=== PATIENT | female | born 1940 | race Caucasian/White ===

== ENCOUNTER 2025-10-26 02:26 | Emergency (ER) | payer OTHER, MEDICARE, SELFPAY ==
[2025-10-26 02:28] VITALS: BMI 33.0
[2025-10-26 02:36] VITALS: BP 174/91; PULSE 60; RESP 18; TEMP 36.6; O2SAT 97
--- NOTE | 2025-10-26 03:00 | PD.EDEXREM ---
ED Extremity Problem RME/HPI General Chief complaint: Extremity Problem,Nontraumatic Stated complaint: RIGHT KNEE PAIN AND SWELLING AFTER HEARING A POP Time Seen by Provider: 10/26/25 02:50 Arrival date/time: 10/26/25 02:26 RME / HPI RME / HPI Narrative: See MDM for Dr. Elizalde's HPI documentation. Related Data Allergies Allergy/AdvReac Type Severity Reaction Status Date / Time No Known Allergies Allergy Verified 10/26/25 02:28 Review of Systems Review of Systems Systems Reviewed: All systems reviewed, normal except as documented ED Exam Narrative Physical exam: See MDM for Dr. Elizalde's physical exam documentation. Course Quality Measures none Orders Category Date Time Status Saline [Insert IV] NOW Care 10/26/25 03:31 Active Straight [In and Out Catheter] X1 Care 10/26/25 03:[address] knee RT wo con Stat Exams 10/26/25 03:32 Ordered US venous doppler LE RT Stat Exams 10/26/25 03:33 Taken XR knee RT 3V Stat Exams 10/26/25 03:09 Taken BNP [B-Type Natriuretic Peptide] Stat Lab 10/26/25 03:52 Completed Bilirubin,Direct Stat Lab 10/26/25 03:52 Completed CBC Stat Lab 10/26/25 03:52 Completed CK [Creatine Kinase] Stat Lab 10/26/25 03:52 Completed CMP [Comprehensive Metabolic Panel] Stat Lab 10/26/25 03:52 Completed CRP [C-Reactive Protein] Stat Lab 10/26/25 03:52 Completed D-Dimer Stat Lab 10/26/25 03:52 Completed ESR [Sed Rate (ESR)] Stat Lab 10/26/25 03:52 Completed Hemoglobin A1C [Glycohemoglobin w (eAG)] Stat Lab 10/26/25 03:52 Completed Magnesium Stat Lab 10/26/25 03:52 Completed Procalcitonin Stat Lab 10/26/25 03:52 Completed TSH [Thyroid Stimulating Hormone] Stat Lab 10/26/25 03:52 Completed UA, C/S IF [Urinalysis, C/S if Indicated] Stat Lab 10/26/25 04:49 Received Uric Acid Stat Lab 10/26/25 03:52 Completed Morphine* Inj Med 10/26/25 03:32 Discontinued 2 mg IV X1 ONE Ondansetron Inj [Zofran Inj] Med 10/26/25 03:32 Discontinued 4 mg IVP X1 ONE Ringers Lactated 1000 ml [Lactated Ringers] 1,000 ml Med 10/26/25 03:32 Active IV 125 mls/hr Vital Signs Vital signs: Vital Signs Temperature 98 F 10/26/25 02:36 Pulse Rate 60 10/26/25 02:36 Respiratory Rate 18 10/26/25 02:36 Blood Pressure 174/91 H 10/26/25 02:36 Pulse Oximetry (%) 97 10/26/25 02:36 Oxygen Delivery Method Room Air 10/26/25 02:36 Extremity Problem MDM Narrative MDM Narrative:: This section includes all my notes and documentations, including HPI, PE, and ED course. Benson Elizalde MD HPI: 85-year-old female here with severe right knee pain and swelling. About 7 hours ago, she got up from her chair when the pain and swelling started. Normally, she ambulates well without assistance. Currently, she can't bear any weight. No other complaints. ROS: All negative except as documented in HPI. Physical Exam: General: Alert and oriented. In obvious pain. Eyes: Conjunctivae and lids clear. ENT: No nasal congestion. Neck: Supple. Heart: RRR. Lungs: No respiratory distress. Good air movement. No rhonchi, wheezing, rales. Skin: Warm and dry. Neuro: Alert and oriented X 3. Right knee: Severe pain and edema. Limited range of motion due to pain. I ordered IVF, Zofran 4 mg IV, morphine 2 mg IV, and diagnostic tests. At 6 AM on 10/26/2025, the care of the patient was transferred to Dr. Mario. Benson Elizalde MD Patient data External records reviewed:: [facility] previous records (Per chart review, patient has no previous ED visits or admissions to this facility.) Clinical information provided by:: patient Social determinants that could affect healthcare access:: none Patient has the following chronic illnesses:: none How is presenting disease/condition affected by chronic disease/condition?: no chronic disease Evaluation data The following diagnostics were reviewed and interpreted by me:: lab results and radiology exam(s) Lab and/or radiology exams considered but not ordered:: none Interpretation Summary: Complete diagnostic tests are pending. Medications / Prescriptions Medications or Prescriptions considered but not ordered:: none Medication administrations:: Medication Administration History Lactated Ringer's (Lactated Ringers) 1,000 mls @ 125 mls/hr IV .Q8H ONE Stop: 10/26/25 11:31 Last Admin: 10/26/25 04:38 Dose: 125 mls/hr Documented By: THOMAS Discontinued Medications Morphine Sulfate (Morphine Sulf Inj 4 Mg/Ml Vial) 2 mg IV X1 ONE Stop: 10/26/25 03:33 Last Admin: 10/26/25 04:38 Dose: 2 mg Documented By: THOMAS Ondansetron HCl (Ondansetron Inj 2 Mg/Ml Inj 2 Ml) 4 mg IVP X1 ONE; Protocol Stop: 10/26/25 03:33 Last Admin: 10/26/25 04:39 Dose: 4 mg Documented By: THOMAS I ordered IVF, Zofran 4 mg IV, morphine 2 mg IV, and diagnostic tests. Consultations Consultation(s) initiated? (list below): No Diagnosis Extremity Problem Differential Diagnosis: gout, cellulitis, superficial thrombophlebitis and deep vein thrombosis of lower extremity Most likely diagnosis given after review of the tests above:: Complete diagnostic tests are pending. Admission Indicated Admission indicated?: not indicated Explain why admission is indicated or not indicated:: Complete diagnostic tests are pending. Admission Request Was there a request for admission?: No Disposition Plan Disposition Plan: other (specify) (Signed out to Dr. Mario at 6 AM.) Discharge Plan Problem List Clinical Impression: Right knee pain Patient/Caregiver Discharge Instructions Print Language: Citizen Of [place]
--- NOTE | 2025-10-26 03:09 | XR_ITS ---
Examination: Knee, right, 3 views Technique: Knee AP, lateral, oblique 3 views Date and time of exam: 10/26/2025 at 3:11 a.m. CLINICAL HISTORY: Pain and swelling, patient heard the knee pop last night FINDINGS: There are degenerative osteophytes surrounding the medial and lateral joint compartments. There is faint but definite calcification of the medial and lateral menisci consistent with chondrocalcinosis. The medial and lateral joint compartments are well preserved, however there is mild but definite abnormal bony sclerosis involving the subarticular portion of the medial and lateral femoral condyles, and there are very tiny lucencies noted in the subchondral portion of the medial and lateral femoral condyle which are suggestive for small bony erosions. On the AP view there is significant swelling noted medially, on the lateral view the suprapatellar bursa is markedly distended with fluid indicating a very large knee joint effusion on the lateral view, much more extensive calcification but can be seen within the joint again felt to be consistent with chondrocalcinosis. IMPRESSION: 1. Although the medial and lateral joint compartments are essentially normal in width, there our mild areas of sclerosis with tiny lytic areas seen in the medial and lateral femoral condyle suggesting significant degenerative changes and small bony erosions involving the subchondral bone. 2. Extensive chondrocalcinosis in the joint 3. An extremely large knee joint effusion is identified. Given the clinical history, this is worrisome for an ACL tear. MRI is recommended
--- NOTE | 2025-10-26 03:32 | XR_ITS ---
Examination: CT right knee, without contrast. 2-D sagittal reconstructions. 2-D coronal reconstructions. 3-D reconstructions. Date and time of exam: October 26, 2025, 0509 hours INDICATIONS: Onset severe right knee pain and swelling decreased range of motion and joint popping today CTDI: vol (mGy): 9.73 DLP: (mGycm): 300 Technique: Multiple 1.25 mm axial sections of the right knee without intravenous contrast have been obtained. 2-D sagittal and coronal reconstructions have been obtained. 3-D reconstructions have been obtained. Low dose protocols were performed. One or more of the following dose reduction techniques were used; automated exposure control, adjustment of the mA and/or KV according to patient size, use of iterative reconstruction technique. Findings: Distal femur femoral condyles intact Large knee effusion with internal debris Moderate patellofemoral joint osteoarthritis no patellar dislocation Patella intact Visualized tibia fibula intact Medial popliteal cyst, 5 cm, seen with internal derangement of the knee Moderate narrowing medial joint space IMPRESSION: No acute fracture Large knee effusion with internal debris Osteoarthritis as above Large popliteal cyst, seen with internal derangement of the knee such as meniscus tear
--- NOTE | 2025-10-26 03:33 | XR_ITS ---
Examination: Duplex scan of the lower extremity, unilateral right Date and time of exam: 10/26/2025 at 404 a INDICATION: 1. Severe right lower extremity pain Technique: Duplex scan of the extremity veins using B-mode/grayscale imaging and Doppler spectral analysis and color flow Attention is directed to internal echogenicity, compression and augmentation involving these veins, color flow assessment, spectral analysis Findings: Major deep venous structures in the extremity demonstrate normal course and caliber. There is no evidence of deep vein thrombosis. Normal color flow and spectral analysis Impression: Negative for DVT..
[2025-10-26 04:12] LABS: Basophils # (Auto) 0.1 Thou/mm3 (0.0-0.2); Basophils % (Auto) 1 % (0-2.5); Eosinophils # (Auto) 0.3 Thou/mm3 (0.0-0.5); Eosinophils % (Auto) 3 % (0-10); Hematocrit 37.1 % (36.0-46.0); Hemoglobin 12.1 g/dL (12.0-16.0); Immature Granulocytes Auto 0.03 Thou/mm3 (0.00-0.00); Lymphocytes # (Auto) 2.1 Thou/mm3 (1.0-4.8); Lymphocytes % (Auto) 25 % (10-50); Mean Corpuscular HGB Conc 32.6 g/dl (31.0-37.0); Mean Corpuscular Hemoglobin 29.4 pg (25.0-35.0); Mean Corpuscular Volume 90 fL (80-100); Monocytes # (Auto) 0.8 Thou/mm3 (0.0-0.8); Monocytes % (Auto) 9 % (0-12); Neutrophils # (Auto) 5.2 Thou/mm3 (1.8-7.7); Neutrophils % (Auto) 61 % (37-80); Nucleated Red Blood Cell # 0.00 Thou/mm3 (0.00-0.00); Nucleated Red Blood Cell % 0 /100 WBC (0); Platelet Count 192 Thou/mm3 (140-440); RDW Standard Deviation 52.9 fL (36.4-46.3); Red Blood Count 4.12 Miln/mm3 (4.00-5.20); White Blood Count 8.5 Thou/mm3 (3.6-11.0)
[2025-10-26 04:19] LABS: Sed Rate (ESR) 7 mm/hr (0-30)
[2025-10-26 04:28] LABS: B-Type Natriuretic Peptide 187 pg/mL (0-100); D-Dimer 377 ng/mL (<600); Glucose Estimated Average 105 mg/dL (80-131); Hemoglobin A1C 5.3 % Hgb (4.8-6.0)
[2025-10-26 04:29] VITALS: BP 184/86; PULSE 60; RESP 18; TEMP 36.9; O2SAT 100
[2025-10-26 04:35] LABS: Albumin, Serum 4.3 gm/dL (3.4-4.8); Albumin/Globulin Ratio 1.7 (1.2-2.2); Alkaline Phosphatase 48 U/L (46-116); Anion Gap 9 (7-16); Aspartate Amino Transferase 26 U/L (0-34); BUN/Creatinine Ratio 10 Ratio (12-20); Bilirubin,Total 0.3 mg/dL (0.3-1.2); Blood Urea Nitrogen 11 mg/dL (9-23); Calcium 9.0 mg/dL (8.3-10.6); Calcium (Corrected) 9.0 mg/dL (8.5-10.1); Carbon Dioxide 26.7 mMol/L (20.0-31.0); Chloride 102 mMol/L (98-107); Creatine Kinase 86 U/L (34-171); Creatinine (Component) 1.1 mg/dL (0.6-1.3); Estimated Creatinine Clearance 37.0 mL/min (>60); Globulin 2.5 gm/dL (2.3-3.5); Glucose 103 mg/dL (74-106); Magnesium 1.9 mg/dL (1.6-2.6); Osmolality,Calculated 275 (275-295); Potassium 3.7 mMol/L (3.4-5.1); Sodium 138 mMol/L (136-145); Total Protein 6.8 gm/dL (5.7-8.2); Uric Acid 6.8 mg/dL (3.1-7.8); eGFR 50 See Note
[2025-10-26] MEDS: RINGERS LACTATED 1000 ML 1,000 ML 125 ML IV (04:38)
[2025-10-26] MEDS: MORPHINE SULF INJ 4 MG/ML VIAL 2 MG IV (04:38)
[2025-10-26] MEDS: ONDANSETRON INJ 2 MG/ML INJ 2 ML 4 MG IVP (04:39)
[2025-10-26 04:51] LABS: Alanine Aminotransferase 9 U/L (10-49); Bilirubin,Direct < 0.1 mg/dL (0.0-0.3); C-Reactive Protein < 0.5 mg/dL (0.0-0.9); Procalcitonin < 0.04 ng/ml (0.0-0.49); Thyroid Stimulating Hormone 1.96 uIU/mL (0.55-4.78)
--- NOTE | 2025-10-26 05:09 | PRELIM_ITS ---
Right lower extremity venous Doppler ultrasound with wave Doppler spectral analysis. October 26, 2025 0403 hours Clinical history: Severe pain. Technique: Duplex scan of the right lower extremity deep venous systems was performed utilizing 2D grayscale imaging, Doppler spectral analysis and color flow Doppler and with compression. Comparison: None available at the time of this report. Findings: Blakely scale, color flow and spectral Doppler evaluation of the right lower extremity deep veins were performed. The common femoral, superficial femoral and popliteal veins are patent and compressible. Normal respiratory variation is noted. There is no evidence of occlusive or nonocclusive thrombus. The great saphenous vein is patent and compressible at the level of the saphenofemoral junction. Complex collection in the popliteal fossa measuring 7.5 x 5.4 x 4.2 cm. Impression: No sonographic evidence of deep venous thrombosis in the right lower extremity. Complex collection in the popliteal fossa, further evaluation for characterization is recommended. Report Electronically Signed By: Dany Wyman 10/26/2025 5:08:55 AM [EST]
[2025-10-26 05:16] LABS: Collection Type, Urine Clean Catch
[2025-10-26 05:27] LABS: Bilirubin,Urine Negative (Negative); Blood,Urine Negative (Negative); Clarity,Urine Clear (Clear/Hazy); Color,Urine Lt-Yellow (Lt Yel-Yel); Culture Indicated,Urine Not Indicated; Glucose, Urine Negative (Negative); Ketones,Urine Negative (Negative); Leukocyte Esterase,Urine Negative (Negative); Nitrite,Urine Negative (Negative); PH,Urine 5.5 (5.0-7.0); Protein,Urine Negative (Neg - Trace); RBC,Urine < 1 /hpf (0-3); Specific Gravity,Urine 1.020 (1.001-1.035); Squamous Epithelial Cell,Urine 1 /hpf (0-5); Urobilinogen,Urine Negative mg/dL (0.0-1.0); WBC,Urine < 1 /hpf (0-5)
--- NOTE | 2025-10-26 05:48 | PRELIM_ITS ---
CT right knee without intravenous contrast (axial sections with sagittal and coronal reformats). October 26, 2025 at 0509 hours Clinical History: Severe pain and edema. Comparison: No prior study is available for comparison. Findings: Large knee joint effusion with debris. Vega's cyst measuring 4.7 x 4.0 x 7 cm. Tricompartmental degenerative changes. No acute fracture is identified. Impression: 1. Nonspecific large knee joint effusion with debris. 2. Large Vega's cyst. 3. Tricompartmental osteoarthritis. Report Electronically Signed By: Santosh Arndt 10/26/2025 5:47:25 AM [EST]
[2025-10-26 06:11] VITALS: BP 170/83; PULSE 60; RESP 18; TEMP 36.4; O2SAT 99
[2025-10-26 08:50] VITALS: BP 148/90; PULSE 63; RESP 17; TEMP 36.4; O2SAT 98
--- NOTE | 2025-10-26 08:50 | PC.NURSE ---
Pt. here from home to room 9, pt. states she went to get up from her chair at home, and heard a pop from her right knee, pt. right knee is swollen and painful. Pt. states at 0200 this morning she couldn't walk on right knee. 2 warm blankets given, pt. states thank you.
--- NOTE | 2025-10-26 10:50 | EDNOTE_ITS ---
Emergency Room Addendum Addendum Narrative: 0600: Care assumed from Dr. Elizalde, the previous shift emergency physician. Past medical, surgical, social and family history reviewed. Vitals and home medications reviewed. I will assume the care of the patient at this time, pending imaging and final disposition. Please refer to the emergency department record for history and examination from initial visit.?The following addendum documentation note is intended to reflect any pending information, findings, or radiology results not included in the patient?s initial chart. We reviewed all the results, analysis, and treatment plans. Patient is amenable to discharge. Strict return precautions were outlined. Patient was discharged in stable condition. Diagnosis: Right knee pain Osteoarthritis Effusion of knee joint RADIOLOGY Ordering Physician: Benson Elizalde MD Date of Service: 10/26/25 Procedure(s): XR knee RT 3V Accession Number(s): [id number] cc: Say Herrera MD; Benson Elizalde MD; NO PRIMARY/FAMILY,PHYSICIAN~ Examination: Knee, right, 3 views Technique: Knee AP, lateral, oblique 3 views Date and time of exam: 10/26/2025 at 3:11 a.m. CLINICAL HISTORY: Pain and swelling, patient heard the knee pop last night FINDINGS: There are degenerative osteophytes surrounding the medial and lateral joint compartments. There is faint but definite calcification of the medial and lateral menisci consistent with chondrocalcinosis. The medial and lateral joint compartments are well preserved, however there is mild but definite abnormal bony sclerosis involving the subarticular portion of the medial and lateral femoral condyles, and there are very tiny lucencies noted in the subchondral portion of the medial and lateral femoral condyle which are suggestive for small bony erosions. On the AP view there is significant swelling noted medially, on the lateral view the suprapatellar bursa is markedly distended with fluid indicating a very large knee joint effusion on the lateral view, much more extensive calcification but can be seen within the joint again felt to be consistent with chondrocalcinosis. IMPRESSION: 1. Although the medial and lateral joint compartments are essentially normal in width, there our mild areas of sclerosis with tiny lytic areas seen in the medial and lateral femoral condyle suggesting significant degenerative changes and small bony erosions involving the subchondral bone. 2. Extensive chondrocalcinosis in the joint 3. An extremely large knee joint effusion is identified. Given the clinical history, this is worrisome for an ACL tear. MRI is recommended Dictated By:Say Herrera MD Signed By:<Electronically signed by Say Herrera MD in [place]>10/26/25 0819 Ordering Physician: Benson Elizalde MD Date of Service: 10/26/25 Procedure(s): CT knee RT wo con Accession Number(s): [id number] cc: Benson Elizalde MD; Say Winters MD~ Examination: CT right knee, without contrast. 2-D sagittal reconstructions. 2-D coronal reconstructions. 3-D reconstructions. Date and time of exam: October 26, 2025, 0509 hours INDICATIONS: Onset severe right knee pain and swelling decreased range of motion and joint popping today CTDI: vol (mGy): 9.73 DLP: (mGycm): 300 Technique: Multiple 1.25 mm axial sections of the right knee without intravenous contrast have been obtained. 2-D sagittal and coronal reconstructions have been obtained. 3-D reconstructions have been obtained. Low dose protocols were performed. One or more of the following dose reduction techniques were used; automated exposure control, adjustment of the mA and/or KV according to patient size, use of iterative reconstruction technique. Findings: Distal femur femoral condyles intact Large knee effusion with internal debris Moderate patellofemoral joint osteoarthritis no patellar dislocation Patella intact Visualized tibia fibula intact Medial popliteal cyst, 5 cm, seen with internal derangement of the knee Moderate narrowing medial joint space IMPRESSION: No acute fracture Large knee effusion with internal debris Osteoarthritis as above Large popliteal cyst, seen with internal derangement of the knee such as meniscus tear Dictated By:Say Winters MD Signed By:<Electronically signed by Say Winters MD in [place]>10/26/25 0744 Ordering Physician: Benson Elizalde MD Date of Service: 10/26/25 Procedure(s): US venous doppler LE RT Accession Number(s): [id number] cc: Say Herrera MD; Benson Elizalde MD; NO PRIMARY/FAMILY,PHYSICIAN~ Examination: Duplex scan of the lower extremity, unilateral right Date and time of exam: 10/26/2025 at 404 a INDICATION: 1. Severe right lower extremity pain Technique: Duplex scan of the extremity veins using B-mode/grayscale imaging and Doppler spectral analysis and color flow Attention is directed to internal echogenicity, compression and augmentation involving these veins, color flow assessment, spectral analysis Findings: Major deep venous structures in the extremity demonstrate normal course and caliber. There is no evidence of deep vein thrombosis. Normal color flow and spectral analysis Impression: Negative for DVT.. Dictated By:Say Herrera MD Signed By:<Electronically signed by Say Herrera MD in [place]>10/26/25 0847
== END 2025-10-26 11:05 | disposition home or self-care (01) ==
PROVIDERS: Emergency Medicine; Emergency Provider Family Medicine
DX: M25.461 Effusion, right knee (principal); M17.11 Unilateral primary osteoarthritis, right knee; M11.261 Other chondrocalcinosis, right knee; M71.21 Synovial cyst of popliteal space [Baker], right knee; M23.306 Other meniscus derangements, unspecified meniscus, right knee
CPT/HCPCS: 36415; 51701; 73562; 73700; 80053; 81001; 82248; 82550; 83036; 83735; 83880; 84145; 84443; 84550; 85025; 85379; 85652; 86140; 93971; 96374; 99284; J2270; J2405; J7120